=== PATIENT | male | born 1990 | race Caucasian/White ===

== ENCOUNTER 2023-08-15 01:01 | Emergency (ER) | payer BC, OTHER ==
[2023-08-15] MEDS: SODIUM CHLORIDE 0.9% 1,000 ML IV STA (01:45)
[2023-08-15 02:04] LABS: Basophils # (A) 0.1 k/uL (0-0.2); Basophils % (A) 1 %; Eosinophils # (A) 0.1 k/uL (0-0.7); Eosinophils % (A) 1 %; Lymphocytes # (A) 2.2 k/uL (1.0-4.8); Lymphocytes % (A) 13 %; MCHC 33.4 g/dL (31.0-37.0); MCV 92.9 fL (80.0-100.0); Mean Platelet Volume 7.8; Monocytes # (A) 1.2 k/uL (0-1.0); Monocytes % (A) 7 %; Neutrophils # (A) 13.5 k/uL (1.3-7.7); Neutrophils % (A) 78 %; Platelet Count 318 k/uL (150-450); RBC 6.75 m/uL (4.30-5.90); RDW 12.4 % (11.5-15.5); WBC 17.2 k/uL (3.8-10.6)
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
[2023-08-15] MEDS: ONDANSETRON 4 MG/2 ML VIAL IVP STA (02:15)
[2023-08-15] MEDS: MORPHINE SULFATE 4 MG/ML SYRINGE IV STA (02:18)
[2023-08-15 02:21] LABS: HCT 62.7 % (39.0-53.0); HGB 20.9 gm/dL (13.0-17.5)
[2023-08-15] MEDS: LACTATED RINGERS 1,000 ML IV ONE ×2 (02:21→04:16)
[2023-08-15] MEDS: DIPH,PERTUS(ACELL)TETVAC-LF 0.5 ML VIAL IM ONE (02:22)
[2023-08-15 03:00] LABS: ALT 25 U/L (4-49); AST 31 U/L (17-59); African American GFR (CKD) 80 (>60 ml/min/1.73 sqM); Albumin 4.3 g/dL (3.5-5.0); Alkaline Phosphatase 88 U/L (38-126); Anion Gap 11 mmol/L; Blood Urea Nitrogen 27 mg/dL (9-20); Calcium 9.5 mg/dL (8.4-10.2); Carbon Dioxide 21 mmol/L (22-30); Chloride 97 mmol/L (98-107); Glucose 128 mg/dL (74-99); Non-African American GFR(CKD) 70 (>60 ml/min/1.73 sqM); Potassium 4.5 mmol/L (3.5-5.1); Sodium 129 mmol/L (137-145); Total Bilirubin 1.1 mg/dL (0.2-1.3); Total Protein 7.3 g/dL (6.3-8.2)
[2023-08-15] MEDS: HYDROmorphone 1 MG/ML 1 ML SYRINGE IVP STA ×2 (03:13→05:49)
[2023-08-15 06:19] VITALS: BP 150/104; PULSE 70; RESP 20
[2023-08-15 06:20] VITALS: TEMP 97.9
== END 2023-08-15 06:14 | disposition other institution (70) ==
LOC: EC 01:01
DX: T22.30XA Burn of third degree of shoulder and upper limb, except wrist and hand, unspecified site, initial encounter (principal); T31.11 Burns involving 10-19% of body surface with 10-19% third degree burns; F17.290 Nicotine dependence, other tobacco product, uncomplicated; Z88.0 Allergy status to penicillin; Z23 Encounter for immunization
CPT/HCPCS: 36415; 80053; 83605; 85025; 90715; 99284; 90471; 96374; 96375 ×2; 96376; 96361 ×4; J2270; J2405; J1170

== ENCOUNTER 2024-01-25 14:35 | Emergency (ER) | payer OTHER ==
[2024-01-25] MEDS: FLUORESCEIN STRIPS 1 MG STRIP RIGHT EYE ONE (15:17)
[2024-01-25] MEDS: PROPARACAINE 0.5% OPHTH DROPS 15 ML BTL LEFT EYE STA (15:17)
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
[2024-01-25] MEDS: TOBRAMYCIN 0.3% OPHTH DROPS 5 ML BTL LEFT EYE STA (16:57)
[2024-01-25 17:01] VITALS: BP 126/84; PULSE 96; RESP 18; TEMP 98.2
== END 2024-01-25 17:01 | disposition home or self-care (01) ==
LOC: EC 14:35
CPT/HCPCS: 65205; 99283